=== PATIENT | male | born 1985 | race Caucasian/White ===

== ENCOUNTER 2020-07-09 15:57 | Inpatient (IN) | payer BC, SELFPAY ==
[2020-07-09 16:10] VITALS: BP 123/75; PULSE 120; RESP 18; TEMP 37.1; O2SAT 100
--- NOTE | 2020-07-09 16:18 | ED.GENADULT ---
HPI - General Adult General Chief complaint: Recheck/Abnormal Lab/Rx Stated complaint: dark urine Time Seen by Provider: 07/09/20 16:08 Source: patient Mode of arrival: ambulatory Limitations: no limitations History of Present Illness HPI narrative: Patient is a 34-year-old male was sent here by his primary care physician due to blood in his urine and was told that he could have an infection. Patient states that his urine was a little dark but did not see any blood. Patient denies any chest pain, shortness of breath, abdominal pain, flank pain, nausea, vomiting, diarrhea, fever or chills. Patient denies any GI bleeding. Related Data Home Medications Medication Instructions Recorded Confirmed Eliquis 5 mg BID 07/09/20 07/09/20 Protonix 40 mg DAILY 07/09/20 07/09/20 Vitamin D2 50,000 units WEEKLY 07/09/20 07/09/20 cyclobenzaprine 10 mg 07/09/20 gabapentin 400 mg TID 07/09/20 07/09/20 nortriptyline 25 mg HS 07/09/20 07/09/20 Allergies Allergy/AdvReac Type Severity Reaction Status Date / Time No Known Allergies Allergy Verified 07/09/20 17:20 Review of Systems Review of Systems: All systems reviewed & are unremarkable except as noted in HPI and below Constitutional: Constitutional: Denies body ache(s), Denies chills, Denies excessive sweating, Denies fatigue, Denies fever(s), Denies headache(s), Denies lethargy, Denies malaise, Denies weakness and Denies weight loss Eyes: Eyes: Denies blurry vision, Denies change in vision and Denies loss of vision ENT: Denies dizziness, Denies ear discharge, Denies headache(s), Denies lip swelling, Denies epistaxis, Denies nasal congestion, Denies neck pain, Denies throat swelling and Denies tongue swelling Cardiovascular: Cardiovascular: Denies chest pain, Denies chest pain at rest, Denies chest pain with activity, Denies diaphoresis, Denies rapid heart rate, Denies edema, Denies irregular heart rhythm, Denies lightheadedness, Denies palpitations, Denies dyspnea and Denies dyspnea on exertion Respiratory: Respiratory: Denies chest congestion, Denies cough, Denies hemoptysis, Denies dyspnea and Denies dyspnea on exertion Gastrointestinal: Gastrointestinal: Denies abdominal pain, Denies melena, Denies hematochezia, Denies diarrhea, Denies nausea, Denies vomiting and Denies hematemesis Musculoskeletal: Musculoskeletal: Denies abnormal gait, Denies deformity, Denies joint swelling, Denies limited range of motion, Denies neck pain and Denies numbness Neurologic: Denies Abnormal speech present, Denies abnormal gait, Denies confusion, Denies dizziness, Denies headache(s), Denies focal weakness, Denies loss of vision, Denies numbness, Denies Other visual disturbances, Denies Sensory deficit (Neuro) and Denies weakness Psychiatric: Psychiatric: Denies confusion, Denies depression, Denies auditory hallucinations, Denies homicidal ideation and Denies suicidal ideation Endocrine: Endocrine: Denies cold intolerance, Denies excessive sweating, Denies fatigue, Denies heat intolerance and Denies palpitations Hematologic/Lymphatic: Hematologic/Lymphatic: Denies easy bleeding and Denies easy bruising Allergic/Immunologic: Allergic/Immunologic: Denies lip swelling, Denies throat swelling and Denies tongue swelling PMFSH Comments Past medical history: Paraplegia Social history: Non-smoker no EtOH use no drug use. Family history noncontributory Exam Const: General: cooperative, healthy appearing, comfortable, no acute distress, well developed, alert and awake; No confusion Orientation/consciousness: oriented to person, oriented to place, oriented to time, patient oriented x3 and No confusion Limitations: no limitations HENMT: Head: normal to inspection, normocephalic and atraumatic Ears: hearing grossly normal bilaterally, TM normal on the right and TM normal on the left General nose exam: Normal external nose present, Normal nares present and No nasal discharge present Face and sinus: normal facia
[2020-07-09 16:37] LABS: Basophils Percent Auto 0.3 % (0.2-1.2); Eosinophils Absolute Auto 0.2 K/mm3 (0-0.3); Eosinophils Percent Auto 1.8 % (0-4.4); Immature Granulocyte Absolute 0.03 K/mm3 (0.00-0.031); Immature Granulocyte Percent A 0.3 % (0-0.5); Lymphocytes Absolute Auto 2.61 K/mm3 (0.9-3.2); Lymphocytes Percent Auto 22.4 % (18.3-44.2); Mean Corpuscular HGB Conc 31.7 g/dl (32-36); Mean Corpuscular Volume 91.5 fl (80-100); Monocytes Absolute Auto 1.1 K/mm3 (0.1-0.6); Monocytes Percent Auto 9.4 % (2.6-8.5); Neutrophils Absolute Auto 7.7 K/mm3 (1.3-6.7); Neutrophils Percent Auto 65.8 % (45.5-73.1); Nucleated Red Blood Cells Perc 0.2 % (0.0-0.2); Platelet Count Result 432 k/mm3 (150-375); Red Blood Count 2.24 M/mm3 (4.6-6.20); Red Cell Distribution Width 16.6 % (11.5-14.5); White Blood Count 11.7 K/mm3 (4.5-10.0)
[2020-07-09 16:40] LABS: Hematocrit 20.5 % (42.0-52.0); Hemoglobin 6.5 g/dL (14.0-18.0)
[2020-07-09 16:47] LABS: Add Urine Microscopic? YES; Appearance Urine Cloudy (Clear); Bacteria Urine 4+ /hpf; Bilirubin Urine Negative (Negative); Blood Urine Negative (Negative); Color Urine Yellow (Yellow); Glucose Urine UA Negative (Negative); Ketones Urine Negative (Negative); Leukocyte Esterase Ur 1+ LEU/UL (Negative); Mucus Urine Rare /lpf; Nitrate Urine Positive (Negative); Protein Urine 1+ mg/dL (Negative); Specific Grav Ur 1.018 (1.001-1.035); Urobilinogen Urine Negative mg/dL (<2.0); WBC Urine 21-30 /hpf
[2020-07-09 16:49] LABS: Anion Gap 6 mmol/L (8-16); Blood Urea Nitrogen 12 mg/dL (9-20); Calcium 8.7 mg/dL (8.4-10.2); Carbon Dioxide 33 mmol/L (22-30); Chloride 98 mmol/L (98-107); Estimated CRCL calculation 142 ml/min; Estimated Glomerular Filt Rate > 60; Glucose 122 mg/dL (75-110); Potassium 4.2 mmol/L (3.4-5.0); Sodium 137 mmol/L (137-145)
[2020-07-09 18:32] LABS: Alanine Aminotransferase 17 U/L (4-50); Albumin Level 3.6 g/dL (3.5-5.1); Alkaline Phosphatase 80 U/L (38-126); Aspartate Amino Transferase 29 U/L (17-59); Bilirubin,Total 1.2 mg/dL (0.2-1.3); Lactate Dehydrogenase 416 U/L (313-618)
[2020-07-09 18:35] VITALS: BP 103/71; PULSE 120; RESP 18; O2SAT 100
[2020-07-09] MEDS: ACETAMINOPHEN 325 MG TABLET 650 MG PO (18:35)
[2020-07-09 18:39] LABS: Transferrin 150 mg/dL (206-381)
--- NOTE | 2020-07-09 18:49 | PC.NURSE ---
1847 - Blood consent signed by patient with this RN as witness. Patient reports history of blood transfusion before with no infusion reaction.
--- NOTE | 2020-07-09 18:59 | PC.NURSE ---
1859- Report given to GERMÁN Alegre.
[2020-07-09 19:01] LABS: Immature Reticulocyte Fraction 32.1 % (3.0-15.9); Reticulocyte Hemoglobin Conten 30.7 pg (28.2-35.7); Reticulocyte Percent 3.84 % (0.7-4.3); Reticulocytes Absolute 0.09 B/L (32.2-175.7)
[2020-07-09 19:22] LABS: Iron 45 ug/dL (49-181)
--- NOTE | 2020-07-09 19:30 | ADMGEN ---
This patient, Agusto Akhtar, was admitted to Medical Room 348-01. Patient/family oriented to hospital policies and general routines including ID bracelet, bed and alarms, visiting hours, pain management, procedures, bathroom and other care routines, personal items, smoking policy, room service/diet, and visiting hours. Information on how to activate the Rapid Response Team has been discussed. Patient/Family are encouraged to report perceived risks to care and to ask questions if they do not understand what they are told or what they should do.
[2020-07-09 19:31] LABS: Percent Iron Saturation 22 % (20-50)
[2020-07-09 19:43] VITALS: BP 118/75; PULSE 116; RESP 18; TEMP 37.6; O2SAT 100; BMI 20.2
[2020-07-09 19:54] LABS: Folic Acid > 20.0 ng/mL (2.76->20)
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
[2020-07-09] MEDS: HYDROcodone/acetaminophen (*CRX) 5-325 MG TABLET 1 TAB PO (20:39)
[2020-07-10] VITALS (10 sets, daily range): BP systolic 103–130; BP diastolic 58–80; PULSE 102–118; RESP 14–18; TEMP 36.6–36.9; O2SAT 99–100; BMI 20.2
[2020-07-10] MEDS: MORPHINE SULFATE (*CRX) 2 MG/ML INJ IV PUSH (00:04)
[2020-07-10] MEDS: CYANOCOBALAMIN INJ 1,000 MCG/ML VIAL 1000 MCG IM ×2 (00:04→16:50)
[2020-07-10] MEDS: SODIUM CHLORIDE 0.9% IV 250 ML 30 ML IV CONT (07:48)
[2020-07-10] MEDS: diphenhydrAMINE HCl INJ 50 MG/ML VIAL 25 MG IV PUSH (07:48)
[2020-07-10] MEDS: TUBING, BLOOD PLUM PUMP TUBING XX (07:49)
[2020-07-10] MEDS: CYANOCOBALAMIN 1,000 MCG TABLET 1000 MCG PO (07:54)
[2020-07-10] MEDS: polyethylene glycoL 3350 17 GM POWD.PACK PO ×2 (10:04→10:06)
--- NOTE | 2020-07-10 11:10 | PM.IMPN ---
Progress Note: A&P Assessment and Plan (1) Profound anemia: Code(s): D64.9 - Anemia, unspecified Status: Acute Assessment and Plan: symptomatic anemia with unclear etiology -Folate normal, B12 mildly decreased, ferritin normal, iron and TIBC low. Anemia chronic disease? -Could have underlying hematology pathology? He had a positive direct Fernando test and antibodies. -Will obtain peripheral smear and consult hematology -Obtain stool occult test, although no hx of dark stool -Hold eliquis. He is on this to prevent DVTs, no hx of clotting. -Start B12 since he is mildly low -no family or personal hx of sickle cell disease -Pt has just finished 1 unit of blood so far. recheck H&H 1 hour (2) Bacteriuria: Code(s): R82.71 - Bacteriuria Status: Acute Assessment and Plan: Await urine cx -Continue ceftriaxone -HUS seems less likely due to normal kidney fx and no diarrhea hx -Could be chronic bacteriuria from self catheterization -Await urine cx and adjust treatment accordinly (3) Tachycardia: Code(s): R00.0 - Tachycardia, unspecified Status: Acute Assessment and Plan: Likely secondary to anemia -no CP -sepsis and pulmonary embolism or less likely (pt on eliquis) but if it continues with the improving hgb, more evaluation may be necessary. -TSH WNL (4) Paraplegia: Code(s): G82.20 - Paraplegia, unspecified Status: Inactive Assessment and Plan: -Continue nortriptyline and gabapentin. - Eliquis currently on hold until we can sort out his anemia -baclofen PRN will be added Time Spent With Patient Time with patient: 25 - 35 minutes Subjective Date/time seen: 07/10/20 11:10 Interval history: Pt is a 34 y/o male here for anemia. Patient was seen today and states he is feeling better than yesterday. the last couple days he felt like he would get a little lightheaded and had presyncopal symptoms but never actually passed out. He has not had any additional issues with that and is feeling much better. He is a paraplegic so he does not get up and walk but he does not feel short of breath, has no chest pain, no lightheadedness and no dizziness. He has been having good ostomy output without any dark stool. He has no personal or family history of sickle cell disease. He has been having some muscle spasms in his thighs lately. Review of Systems Review of Systems: All systems reviewed & are unremarkable except as noted in HPI and below Exam Narrative: Exam Narrative: General: Well developed well nourished patient in NAD HEENT: normocephalic Neck: supple Neuro: Alert and oriented x4 CV: Tachycardia that appeared sinus at 110 on exam. No murmurs Resp:CTA Abd: Soft, non distended. No pain to palpation. ostomy bag intact with normal formed stool. Positive bowel sounds Extremities: No swelling, erythema, or pain to palpation. paraplegic. Pulses intact Objective Data Vital Signs Vital Signs: Vital Signs - 24 hr 07/09/20 16:10 07/09/20 18:35 07/09/20 19:43 Temperature 98.7 F 99.6 F Pulse Rate 120 H 120 H 116 H Respiratory Rate 18 18 18 Blood Pressure 123/75 103/71 118/75 Pulse Oximetry 100 100 100 07/10/20 05:48 07/10/20 07:42 07/10/20 07:51 Temperature 98 F 98.0 F Pulse Rate 114 H 102 H 115 H Respiratory Rate 18 16 Blood Pressure 120/58 L 111/58 L Pulse Oximetry 100 99 07/10/20 08:06 07/10/20 09:06 07/10/20 10:06 Temperature 98.3 F 98.1 F 98.2 F Pulse Rate 111 H 111 H 118 H Respiratory Rate 14 16 16 Blood Pressure 124/71 123/64 130/80 Pulse Oximetry 99 100 100 07/10/20 11:06 Temperature 98.1 F Pulse Rate 115 H Respiratory Rate 16 Blood Pressure 130/80 Pulse Oximetry 100 Intake/Output Intake/Output: Intake & Output 07/07/20 07/08/20 07/09/20 07/10/20 23:59 23:59 23:59 23:59 Intake Total 50 250 Output Total 300 300 Balance -250 -50 Meds/Results Medications: Active Medi
--- NOTE | 2020-07-10 11:35 | PCNSR ---
On 07/10/20, the student,Andra Blas, provided care and completed [facility] documentation on this patient. I have reviewed the student's documentation and agree with the findings.
[2020-07-10 12:57] LABS: Hematocrit 23.6 % (42.0-52.0); Hemoglobin 7.7 g/dL (14.0-18.0)
[2020-07-10] MEDS: GABAPENTIN 400 MG CAPSULE BY MOUTH ×2 (13:01→16:50)
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
[2020-07-10 14:57] LABS: IFOB Positive Control Positive; Immunochemical Fecal Occult Bl Negative (N)
[2020-07-10] MEDS: FERROUS SULFATE 324 MG TABLET PO (16:50)
[2020-07-10] MEDS: BACLOFEN 10 MG TABLET PO (21:00)
[2020-07-10] MEDS: NORTRIPTYLINE HCL 25 MG CAPSULE BY MOUTH (21:00)
[2020-07-11 05:25] VITALS: BP 119/72; PULSE 109; RESP 16; TEMP 36.4; O2SAT 100
[2020-07-11 05:58] LABS: Basophils Percent Auto 0.3 % (0.2-1.2); Eosinophils Absolute Auto 0.4 K/mm3 (0-0.3); Hematocrit 24.2 % (42.0-52.0); Hemoglobin 7.8 g/dL (14.0-18.0); Immature Granulocyte Absolute 0.04 K/mm3 (0.00-0.031); Immature Granulocyte Percent A 0.3 % (0-0.5); Lymphocytes Absolute Auto 2.36 K/mm3 (0.9-3.2); Lymphocytes Percent Auto 19.7 % (18.3-44.2); Mean Corpuscular HGB Conc 32.2 g/dl (32-36); Mean Corpuscular Hemoglobin 29.2 pg (26-34); Mean Corpuscular Volume 90.6 fl (80-100); Monocytes Absolute Auto 1.3 K/mm3 (0.1-0.6); Neutrophils Absolute Auto 7.9 K/mm3 (1.3-6.7); Neutrophils Percent Auto 65.7 % (45.5-73.1); Nucleated Red Blood Cells Absolute Auto 0.1 K/mm3 (0.0-0.012); Nucleated Red Blood Cells Perc 0.7 % (0.0-0.2); Platelet Count Result 518 k/mm3 (150-375); Red Blood Count 2.67 M/mm3 (4.6-6.20); Red Cell Distribution Width 17.2 % (11.5-14.5)
[2020-07-11 06:22] LABS: Alanine Aminotransferase 15 U/L (4-50); Albumin Level 3.2 g/dL (3.5-5.1); Alkaline Phosphatase 73 U/L (38-126); Anion Gap 0 mmol/L (8-16); Aspartate Amino Transferase 22 U/L (17-59); Bilirubin,Total 0.8 mg/dL (0.2-1.3); Blood Urea Nitrogen 10 mg/dL (9-20); Calcium 8.7 mg/dL (8.4-10.2); Carbon Dioxide 35 mmol/L (22-30); Chloride 102 mmol/L (98-107); Estimated CRCL calculation 132 ml/min; Estimated Glomerular Filt Rate > 60; Glucose 134 mg/dL (75-110); Potassium 4.1 mmol/L (3.4-5.0); Sodium 137 mmol/L (137-145)
[2020-07-11] MEDS: CYANOCOBALAMIN 1,000 MCG TABLET 1000 MCG PO (08:59)
[2020-07-11] MEDS: GABAPENTIN 400 MG CAPSULE BY MOUTH ×3 (08:59→17:48)
[2020-07-11] MEDS: PANTOPRAZOLE 40 MG TABLET BY MOUTH (08:59)
[2020-07-11] MEDS: polyethylene glycoL 3350 17 GM POWD.PACK PO (08:59)
[2020-07-11] MEDS: FERROUS SULFATE 324 MG TABLET PO ×2 (08:59→17:48)
[2020-07-11 14:00] VITALS: BP 111/68; PULSE 114; RESP 16; TEMP 36.7; O2SAT 99
--- NOTE | 2020-07-11 14:26 | WPDONCPN ---
Progress Note: A/P - Additional Plan Normocytic anemia. Labs showed low vitamin B12 and mild iron deficiency. Kidney function was normal. Hemoccult stools came back negative for bleeding. Fernando test was positive. LDH and bilirubin normal. Hemoglobin electrophoresis pending. Patient is clinically feeling better. If hemoglobin does not improve any further then we will consider giving him a trial of prednisone 60 mg daily for possible hemolytic anemia with positive Fernando test. I will continue vitamin B12 injection for total of 3 days and then will be discharged home on oral vitamin B12 500 micro g daily. He will also take oral ferrous sulfate 325 mg 3 times a day. I will see him back in the office in 2 weeks to repeat labs. Leukocytosis and thrombocytosis. This is likely reactive. - Time Spent With Patient Total time spent is greater than 50% in coordination of care (as documented) at patient's floor/unit and/or counseling patient: 15 - 25 minutes Subjective Interval history: Normocytic anemia Leukocytosis and thrombocytosis Review of Systems - Review of Systems Patient is feeling better and little bit more energetic today. He denies any bleeding and bruising. He started eating better. Denies any abdominal pain and chest pain. No other new complaints. - Neurologic Denies abnormal speech, Denies abnormal gait, Denies confusion, Denies headache(s), Denies focal weakness, Denies loss of vision, Denies numbness, Denies other visual disturbances, Denies sensory deficit, Denies weakness Exam Vital signs: Temp Pulse Resp BP Pulse Ox 36.4 C 109 H 16 119/72 100 07/11/20 05:25 07/11/20 05:25 07/11/20 05:25 07/11/20 05:25 07/11/20 05:25 Narrative: Lungs are clear to auscultation bilaterally Cardiovascular regular rate rhythm no murmurs Abdomen soft nontender nondistended bowel sounds are positive in all 4 quadrant Extremities no edema PN: Objective Data - Labs CBC & Chem 7: 07/11/20 05:20 07/11/20 05:20 Labs: Laboratory Results - last 24 hr 07/09/20 07/10/20 07/11/20 17:34 12:22 05:20 WBC 12.0 H RBC 2.67 L Hgb 7.8 L Hct 24.2 L MCV 90.6 MCH 29.2 MCHC 32.2 RDW 17.2 H Plt Count 518 H MPV 9.0 Immature Gran % (Auto) 0.3 Neut % (Auto) 65.7 Lymph % (Auto) 19.7 [place] % (Auto) 11.0 H Eos % (Auto) 3.0 Baso % (Auto) 0.3 Lymph # (Auto) 2.36 [place] # (Auto) 1.3 H Eos # (Auto) 0.4 H Baso # (Auto) 0.0 Abs Immat Gran (auto) 0.04 H Absolute Neuts (auto) 7.9 H Absolute Nucleated RBC 0.1 H Nucleated RBC % 0.7 H Sodium Potassium Chloride Carbon Dioxide Anion Gap BUN Creatinine Estim Creat Clear Calc Estimated GFR Glucose Calcium Total Bilirubin Direct Bilirubin AST ALT Alkaline Phosphatase Total Protein Albumin Stl Occult Blood (IFOB) Negative Enhanced Crossmatch See Detail 07/11/20 05:20 WBC RBC Hgb Hct MCV MCH MCHC RDW Plt Count MPV Immature Gran % (Auto) Neut % (Auto) Lymph % (Auto) [place] % (Auto) Eos % (Auto) Baso % (Auto) Lymph # (Auto) [place] # (Auto) Eos # (Auto) Baso # (Auto) Abs Immat Gran (auto) Absolute Neuts (auto) Absolute Nucleated RBC Nucleated RBC % Sodium 137 Potassium 4.1 Chloride 102 Carbon Dioxide 35 H Anion Gap 0 L BUN 10 Creatinine 0.60 L Estim Creat Clear Calc 132 Estimated GFR > 60 Glucose 134 H Calcium 8.7 Total Bilirubin 0.8 Direct Bilirubin 0.0 AST 22 ALT 15 Alkaline Phosphatase 73 Total Protein 7.0 Albumin 3.2 L Stl Occult Blood (IFOB) Enhanced Crossmatch
--- NOTE | 2020-07-11 15:17 | PM.IMPN ---
Progress Note: A&P Assessment and Plan (1) Profound anemia: Code(s): D64.9 - Anemia, unspecified Status: Acute Assessment and Plan: Symptomatic anemia with unclear etiology. Underwent transfusion 1 unit pRBC on 07/10/20. Folate normal, B12 mildly decreased, ferritin normal, iron and TIBC low. He had a positive direct Fernando test and antibodies. No family or personal history of sickle cell disease. Peripheral smear shows hypochromic anemia consistent with iron deficiency. IFOB negative. H&H remaining stable. Vital signs remaining stable. No evidence of bleeding. -hematology is following and input is appreciated -Continue PO vitamin b12 1000 mcg qAM. Discussed with Dr. Sandoval and plan to discharge on 500 mcg daily. Hopeful discharge tomorrow if stable H&H and continued improvement. -Continue PO iron supplementation. Discharge on oral iron. -Resume Eliquis. Do not suspect blood loss anemia. -Trend H&H. Transfuse as needed with hgb threshold <7.0 -Plan for CBC 1 week following discharge and outpatient hematology follow up 2 weeks post discharge. (2) Urinary tract infection: Code(s): N39.0 - Urinary tract infection, site not specified Status: Acute Assessment and Plan: Urine culture abnormal upon presentation. He has mild leukocytosis. Urine culture demonstrated >100,000 CFU Klebsiella oxytocin. -continue IV Rocephin (3) Tachycardia: Code(s): R00.0 - Tachycardia, unspecified Status: Acute Assessment and Plan: Likely secondary to anemia or UTI. No chest pain or palpitations. HR has ranged from 100-120. PE less likely as pt is on Eliquis with no missed doses (however eliquis initially held in setting of anemia). TSH wnl. -Check orthostatics, lying down and sitting up only -check EKG -Monitor HR and hemodynamic trends -Consider IV fluid bolus. At this time, patient appears euvolemic and is eating and drinking. (4) Paraplegia: Code(s): G82.20 - Paraplegia, unspecified Status: Inactive Assessment and Plan: Secondary to thoracic spinal cord injury in January 2020. -Continue nortriptyline and gabapentin. -baclofen PRN (5) Thrombocytosis: Code(s): D47.3 - Essential (hemorrhagic) thrombocythemia Status: Acute Assessment and Plan: Platelets 518 today. Thrombocytosis noted on peripheral smear. This is likely reactive secondary to infectious etiology vs anemia. -monitor platelets Subjective Date/time seen: 07/11/20 15:17 Interval history: Date of service: 07/11/2020 Agusto Akhtar is a 34-year-old male with history of paraplegia secondary to thoracic spinal cord injury and chronic anemia who is seen in follow-up for anemia. He is feeling better today and reports his appetite is significantly improved. He no longer is having dizziness or lightheadedness. He denies shortness of breath. No nausea, vomiting, fever, chills. Denies weakness. No additional concerns at this time. Review of Systems Review of Systems: Narrative: 12 systems reviewed with pertinent positives and negatives as per HPI. All systems reviewed & are unremarkable except as noted in HPI and below Exam Narrative: Exam Narrative: Mr. Akhtar is a well-nourished, well-appearing paraplegic 34-year-old male who is lying semi recumbent in bed. He appears comfortable and is in NARD. Neuro: awake, alert and oriented x4, speech clear, no focal neuro deficits noted HEENMT: normocephalic, atraumatic, EOMI, sclerae anicteric, moist oral mucosa, tongue midline, nares patent Neck: supple, no lymphadenopathy Respiratory: clear to auscultation bilaterally, nonlabored breathing Cardio: regular rate, regular rhythm with S1-S2 Abdomen: nondistended, normoactive bowel sounds, soft, nontender to palpation, no rigidity or guarding. Colostomy bag in right lower quadrant Extremities: no edema, erythema, cyanosis, clubbing. DP pulses 2+ bilaterally Skin: no
--- NOTE | 2020-07-11 15:43 | ECG_ITS ---
Measurements Intervals [place] Rate: 114 P: 50 OK: 121 QRS: 32 QRSD: 88 T: 43 QT: 304 QTc: 420 Interpretive Statements SINUS TACHYCARDIA INCOMPLETE RIGHT BUNDLE BRANCH BLOCK ST ELEVATION IN ANTEROLATERAL LEADS- PROBABLY EARLY REPOLARIZATION NONSPECIFIC T-WAVE ABNORMALITY- INF/HIGH LAT LEADS BASELINE WANDER- II, III, AVF, V5-V6 ABNORMAL ECG Electronically Signed On 07-11-2020 16:35:03 [facility] by Jose Jean D.O.
[2020-07-11] MEDS: APIXABAN 5 MG TABLET BY MOUTH (17:48)
[2020-07-11 20:09] VITALS: BP 117/70; PULSE 110; RESP 14; TEMP 37.2; O2SAT 100
[2020-07-11] MEDS: NORTRIPTYLINE HCL 25 MG CAPSULE BY MOUTH (20:42)
[2020-07-12 06:00] VITALS: BP 120/65; PULSE 105; RESP 14; TEMP 36.6; O2SAT 100
[2020-07-12 06:06] LABS: Basophils Absolute Auto 0.1 K/mm3 (0.0-0.1); Basophils Percent Auto 0.5 % (0.2-1.2); Eosinophils Absolute Auto 0.3 K/mm3 (0-0.3); Eosinophils Percent Auto 2.9 % (0-4.4); Hemoglobin 8.1 g/dL (14.0-18.0); Immature Granulocyte Absolute 0.03 K/mm3 (0.00-0.031); Immature Granulocyte Percent A 0.3 % (0-0.5); Lymphocytes Absolute Auto 2.15 K/mm3 (0.9-3.2); Lymphocytes Percent Auto 19.5 % (18.3-44.2); Mean Corpuscular HGB Conc 32.4 g/dl (32-36); Mean Corpuscular Hemoglobin 29.3 pg (26-34); Mean Corpuscular Volume 90.6 fl (80-100); Mean Platelet Volume 8.4 fl (7.4-10.4); Monocytes Absolute Auto 1.1 K/mm3 (0.1-0.6); Monocytes Percent Auto 10.2 % (2.6-8.5); Neutrophils Absolute Auto 7.4 K/mm3 (1.3-6.7); Neutrophils Percent Auto 66.6 % (45.5-73.1); Nucleated Red Blood Cells Absolute Auto 0.1 K/mm3 (0.0-0.012); Nucleated Red Blood Cells Perc 0.7 % (0.0-0.2); Platelet Count Result 629 k/mm3 (150-375); Red Blood Count 2.76 M/mm3 (4.6-6.20); Red Cell Distribution Width 17.1 % (11.5-14.5)
[2020-07-12 06:21] LABS: Anion Gap 3 mmol/L (8-16); Blood Urea Nitrogen 13 mg/dL (9-20); Calcium 9.3 mg/dL (8.4-10.2); Carbon Dioxide 34 mmol/L (22-30); Chloride 100 mmol/L (98-107); Estimated CRCL calculation 132 ml/min; Estimated Glomerular Filt Rate > 60; Glucose 110 mg/dL (75-110); Potassium 4.3 mmol/L (3.4-5.0); Sodium 137 mmol/L (137-145)
[2020-07-12 08:00] VITALS: PULSE 105; RESP 14; O2SAT 99
[2020-07-12 08:14] VITALS: O2SAT 99
[2020-07-12] MEDS: polyethylene glycoL 3350 17 GM POWD.PACK PO (08:31)
[2020-07-12] MEDS: FERROUS SULFATE 324 MG TABLET PO (08:31)
[2020-07-12] MEDS: APIXABAN 5 MG TABLET BY MOUTH (08:31)
[2020-07-12] MEDS: CYANOCOBALAMIN 1,000 MCG TABLET 1000 MCG PO (08:31)
[2020-07-12] MEDS: GABAPENTIN 400 MG CAPSULE BY MOUTH ×2 (08:32→12:03)
[2020-07-12] MEDS: PANTOPRAZOLE 40 MG TABLET BY MOUTH (08:32)
[2020-07-12] MEDS: CIPROFLOXACIN 500 MG TAB PO (08:47)
--- NOTE | 2020-07-12 11:48 | PM.DS ---
DS: Admitting Diagnosis Admitting Diagnosis Admitting Diagnosis: Profound Anemia, bacteriuria, tachycardia DS: Discharge Diagnosis Discharge Diagnosis (1) Profound anemia: Code(s): D64.9 - Anemia, unspecified Status: Acute Assessment and Plan: Symptomatic anemia with unclear etiology. Underwent transfusion 1 unit pRBC on 07/10/20. Folate normal, B12 mildly decreased, ferritin normal, iron and TIBC low. He had a positive direct Fernando test and antibodies. No family or personal history of sickle cell disease. Peripheral smear shows hypochromic anemia consistent with iron deficiency. IFOB negative. H&H remaining stable. Vital signs remaining stable. No evidence of bleeding. -hematology is following and input is appreciated -Per Dr. Sandoval, plan to discharge on 500 mcg daily -Continue PO iron supplementation. Discharge on oral iron. -Continue Eliquis. Do not suspect blood loss anemia. -Plan for CBC 1 week following discharge and outpatient hematology follow up 2 weeks post discharge. (2) Urinary tract infection: Code(s): N39.0 - Urinary tract infection, site not specified Status: Acute Assessment and Plan: Urine culture abnormal upon presentation. He has mild leukocytosis. Urine culture demonstrated >100,000 CFU Klebsiella oxytocin, sensitive to Rocephin and Cipro. -D/c Rocephin (3 days) -Start Cipro 500 mg Q12hr today and continue through 07/16 to complete 5 days of this (8 days total of antibiotics) (3) Tachycardia: Code(s): R00.0 - Tachycardia, unspecified Status: Acute Assessment and Plan: Likely secondary to anemia or UTI. No chest pain or palpitations. HR has ranged from 100-120. PE less likely as pt is on Eliquis with no missed doses (however eliquis initially held in setting of anemia). TSH wnl. EKG grossly unremarkable for patient's symptoms. Overall, patient feels much better today -Unremarkable work up, thus will have patient f/u with PCP (4) Paraplegia: Code(s): G82.20 - Paraplegia, unspecified Status: Inactive Assessment and Plan: Secondary to thoracic spinal cord injury in January 2020. -Continue nortriptyline and gabapentin. -baclofen PRN (5) Thrombocytosis: Code(s): D47.3 - Essential (hemorrhagic) thrombocythemia Status: Acute Assessment and Plan: Platelets 629 today. Thrombocytosis noted on peripheral smear. This is likely reactive secondary to infectious etiology vs anemia. -monitor platelets with CBC 1 week DS: Summary Hospital Course Reason for hospitalization: Profound anemia, UTI Hospital Course: Date of arrival: 07/09/20 Date of discharge: 07/12/20 Patient is a 34-year-old male with paraplegia on Eliquis for DVT prophylaxis and history of anemia who presented to the emergency department on 07/09 at the direction of his primary care provider for further evaluation of anemia. While in the ED, patient was found to have hgb of 6.5 thus was transfused 1 u pRBC. He was also found to have UA suspicious for UTI and was started on IV Rocephin. Patient admitted under this setting of anemia and bacteruria. Please see H&P for further details. Patient was admitted to the hospitalist service for further management/treatment. Patient's hemoglobin was trended with improvement of hemoglobin to 7.7-8.[address] Sandoval (hematology) was consulted for further input. He was found to have low normal vitamin B12 and iron panel suggestive of ACD with low iron and TIBC and normal ferritin; normal saturations. It was recommended patient have vitamin B12 replaced during stay and PO iron supplementation. Dr. Sandoval recommended cyanocobalamin 500 mcg daily and ferrous sulfate 325 mg TIDWM. He was to follow up with Dr. Sandoval in 2 week
[2020-07-12 13:55] VITALS: BP 116/60; PULSE 105; RESP 18; TEMP 36.7; O2SAT 100
--- NOTE | 2020-07-12 14:53 | PC.NURSE ---
Patient voiced that he has had the flu vaccine this season.
[2020-07-16 20:59] LABS: Haptoglobin 227 mg/dL (43-212)
[2020-07-18 00:07] LABS: Hematocrit 20.3 % (38.5-50.0); Hemoglobin 6.6 g/dL (13.2-17.1); MCH 30.1 pg (27.0-33.0); MCV 92.7 FL (80.0-100.0); RDW 16.2 % (11.0-15.0); Red Blood Cell Count 2.19 Mill/uL (4.20-5.80)
== END 2020-07-12 15:25 | disposition home or self-care (01) | DRG 663 ==
LOC: ANHED 18:34 → ANH3MED 18:40
PROVIDERS: Physician Assistant; Admitting Provider Family Medicine; Emergency Provider Emergency Medicine; PCP Family Medicine; Visit Provider Physician Assistant
DX: D50.9 Iron deficiency anemia, unspecified (principal); N39.0 Urinary tract infection, site not specified; B96.1 Klebsiella pneumoniae [K. pneumoniae] as the cause of diseases classified elsewhere; R00.0 Tachycardia, unspecified; E55.9 Vitamin D deficiency, unspecified; D72.828 Other elevated white blood cell count; D47.3 Essential (hemorrhagic) thrombocythemia; G82.20 Paraplegia, unspecified; W34.00XS Accidental discharge from unspecified firearms or gun, sequela
CPT/HCPCS: 36415; 36430; 80048; 80076; 81001; 81479; 82607; 82728; 82746; 83010; 83021; 83540; 83550; 83615; 84443; 84466; 85014; 85018; 85025; 85046; 86850; 86860; 86870; 86880; 86900; 86901; 86902; 86922; 86970; 86971; 86978; 87077; 87086; 87088; 87186; 93005; 96365; 96372; 96375; 99285; A9270; G0378; G0379; J0696; J1200; J2270; J3420; J7050; P9016

== ENCOUNTER 2023-04-29 16:02 | Emergency (ER) | payer MEDICARE, MEDICAID, SELFPAY ==
[2023-04-29 16:21] VITALS: BP 149/88; PULSE 108; RESP 18; TEMP 36.5; O2SAT 97
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
[2023-04-29 23:02] LABS: Basophils Absolute Auto 0.1 K/mm3 (0.0-0.1); Basophils Percent Auto 0.7 % (0.2-1.2); Eosinophils Absolute Auto 0.4 K/mm3 (0-0.3); Eosinophils Percent Auto 3.6 % (0-4.4); Hematocrit 40.9 % (42.0-52.0); Hemoglobin 12.6 g/dL (14.0-18.0); Immature Granulocyte Absolute 0.02 K/mm3 (0.00-0.031); Immature Granulocyte Percent A 0.2 % (0-0.5); Lymphocytes Absolute Auto 2.91 K/mm3 (0.9-3.2); Lymphocytes Percent Auto 27.9 % (18.3-44.2); Mean Corpuscular HGB Conc 30.8 g/dl (32-36); Mean Corpuscular Hemoglobin 29.4 pg (26-34); Mean Corpuscular Volume 95.6 fl (80-100); Mean Platelet Volume 8.5 fl (7.4-10.4); Monocytes Absolute Auto 1.5 K/mm3 (0.1-0.6); Monocytes Percent Auto 14.4 % (2.6-8.5); Neutrophils Absolute Auto 5.6 K/mm3 (1.3-6.7); Neutrophils Percent Auto 53.2 % (45.5-73.1); Platelet Count Result 549 k/mm3 (150-375); Red Blood Count 4.28 M/mm3 (4.6-6.20); Red Cell Distribution Width 15.1 % (11.5-14.5); White Blood Count 10.4 K/mm3 (4.5-10.0)
[2023-04-29 23:13] LABS: Alanine Aminotransferase 16 U/L (6-50); Albumin Level 4.1 g/dL (3.5-5.1); Alkaline Phosphatase 129 U/L (38-126); Anion Gap 5 mmol/L (8-16); Aspartate Amino Transferase 24 U/L (17-59); Bilirubin,Total 0.4 mg/dL (0.2-1.3); Blood Urea Nitrogen 8 mg/dL (9-20); Calcium 9.3 mg/dL (8.4-10.2); Carbon Dioxide 28 mmol/L (22-30); Chloride 106 mmol/L (98-107); Estimated CRCL calculation 127 ml/min; Estimated Glomerular Filt Rate > 60; Glucose 93 mg/dL (65-110); Potassium 4.1 mmol/L (3.4-5.0); Sodium 139 mmol/L (137-145)
[2023-04-30 00:08] LABS: Toxigenic C. Diff NEGATIVE (NEGATIVE)
[2023-04-30 00:33] VITALS: BP 140/84; PULSE 92; RESP 15; O2SAT 100
== END 2023-04-30 00:34 | disposition home or self-care (01) ==
PROVIDERS: Emergency Provider Physician Assistant
DX: K52.1 Toxic gastroenteritis and colitis (principal); T36.95XA Adverse effect of unspecified systemic antibiotic, initial encounter; N39.0 Urinary tract infection, site not specified; G82.20 Paraplegia, unspecified; S24.109S Unspecified injury at unspecified level of thoracic spinal cord, sequela; D64.9 Anemia, unspecified; E55.9 Vitamin D deficiency, unspecified; Z79.01 Long term (current) use of anticoagulants; W34.00XS Accidental discharge from unspecified firearms or gun, sequela
CPT/HCPCS: 36415; 80053; 85025; 87493; 99283

== ENCOUNTER 2023-10-07 13:30 | Outpatient (RCR) | payer MEDICARE, SELFPAY ==
--- NOTE | 2023-07-29 14:15 | OTOPEVAL1 ---
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 He reports he has been feeling more sensation and pain in his lower body. He comes today with only OT orders. Requesting PT orders. He reports he would like to build his UB strength and work on standing. Agusto Ortiz lives at home with his mom, Karen. They live in a town home with only a 1/2 bath on the 1st floor, so he sponge bathes. His mom assists him with bathing and dressing. He uses a slide board for transfers at home. Independently propels himself in a manual w/c. Reported Pain Level Pain Score 6: Self Report Assessment OT Clinical Summary Patient referred to OT with dx of SCI. He presents with intact functional strength of the UEs. Issued UE strengthening HEP today and he completes with some difficulty with 5 lb. weights. Continued skilled OT indicated to continue to progress UE HEP and progress functional upper body strengthening to facilitate optimal strength to assist with functional transfers and ADLs. Plan of Care Interventions Therapeutic Exercise OT Services Indicated Yes Treatment Frequency and 2x/week for 8 visits Duration These treatments will address the objective and functional deficits as defined above. The patient will be advanced safely and appropriately in order for the patient to progress towards his/her prior level of function. Additional exercises will be introduced and as well as a comprehensive home exercise program upon discharge, if needed, ?to ensure carryover of functional gains achieved in the clinic. This treatment plan has been reviewed and agreement upon by the patient.
--- NOTE | 2023-07-29 14:15 | OPREHPOC ---
Outpatient Therapy Plan of Care This is a Multidisciplinary Plan of Care that may contain components documented by all disciplines (PT, OT, and ST.) OT Problem 1 OT Problem #1 Knowledge Deficit OT Goal 1 Goal 1. Patient to be independent with instructed materials. Target Visit 8 OT Problem 2 OT Problem #2 Impaired Strength OT Goal 1 Goal 1. Patient to be able to complete UE strengthening HEP with 5 lb. free weights x20 reps while seated edge of mat. Target Visit 8
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
--- NOTE | 2023-09-01 11:34 | OPREHPOC ---
Outpatient Therapy Plan of Care This is a Multidisciplinary Plan of Care that may contain components documented by all disciplines (PT, OT, and ST.) PT Problem 1 PT Problem #1 Knowledge Deficit PT Goal 1 Goal Independent HEP addressing l.e. strength Target Visit 2 PT Problem 2 PT Problem #2 Impaired Functional Mobil PT Goal 1 Goal -Pt. will be able to maintain balance in standing position in the Easy stand for duration of 20 minutes -Pt. will be able to complete reaching activities without assist while in the Easy Stand. -Pt. will be able to stand with u.e. support from the walker for duration of 2-3 minutes. OT Problem 1 OT Problem #1 Knowledge Deficit OT Goal 1 Goal 1. Patient to be independent with instructed materials. Target Visit 8 OT Problem 2 OT Problem #2 Impaired Strength OT Goal 1 Goal 1. Patient to be able to complete UE strengthening HEP with 5 lb. free weights x20 reps while seated edge of mat. Target Visit 8
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
--- NOTE | 2023-09-14 09:01 | PCOTNOTE ---
Patient called & cancelled scheduled appointment this date due to transportation issue.
--- NOTE | 2023-09-14 09:57 | PCPTNOTE ---
Pt cancelled due to transportation issues
--- NOTE | 2023-09-21 11:59 | PCPTNOTE ---
Pt canceled due to illness.
--- NOTE | 2023-09-23 14:22 | PCPTNOTE ---
Called and cancelled today,reason unknown. AKS
--- NOTE | 2023-09-23 16:02 | PCOTNOTE ---
Patient called & cancelled scheduled appointment this date due to transportation issues.
--- NOTE | 2023-10-12 13:54 | PCPTNOTE ---
Pt did not show today but stated all of his appts. were supposed to be canceled until October due to transportation.
--- NOTE | 2023-10-14 14:07 | PCPTNOTE ---
This treatment is being continued on visit number [id number]. Please see documentation on both accounts to view progress. Completed interventions, outcomes, and problems have been marked as Inactive to facilitate the copying of the Care plan routine for recurring accounts.
== END 2023-10-14 10:15 | disposition home or self-care (01) ==
LOC: ANHPT 13:30
PROVIDERS: PCP Physician Assistant; Visit Provider Physician Assistant
DX: S34.129 Incomplete lesion of unspecified level of lumbar spinal cord (principal)
CPT/HCPCS: 97110; 97112; 97140; 97162; 97165; 97530

== ENCOUNTER 2023-11-21 12:30 | Outpatient (RCR) | payer MEDICARE, SELFPAY ==
--- NOTE | 2023-10-14 13:38 | PCPTNOTE ---
No call No show, reason unknown. AKJosephine
--- NOTE | 2023-10-14 14:06 | PCPTNOTE ---
This treatment is being continued from visit number [id number] Please see documentation on both accounts to view progress. Completed interventions, outcomes, and problems have been marked as Inactive to facilitate the copying of the Care plan routine for recurring accounts.
--- NOTE | 2023-10-31 14:23 | OTOPDC ---
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 He states he is doing his exercises with heavier weights. Functionally he reports no changes in his ability to complete ADLs. He states the sensations in his legs are getting worse, feeling like his legs are on fire. States this keeps him up at night and he ends up sleeping all day. Assessment OT Clinical Summary Patient referred to OT with dx of SCI. OT has been focusing on UB strengthening, especially in unsupported sitting to challenge his trunk control and balance. Reviewed HEP today and he completes with excellent understanding. He has been completing HEP with 5 lb. free weights and has been able to slowly increase amount of reps per set. Added theraband exercises to HEP today and he completes with excellent understanding. Compliance with HEP at home is challenging as he reports leg pain keeps him in bed a lot and he has a hard time getting sleep. At this time patient is independent with HEP. He has 1 OT treatment scheduled this week. Plan for that treatment to be his final visit and we will be discharging OT.
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
--- NOTE | 2023-11-21 14:29 | PTOPDC ---
Assessment and note entered by Ludwin Hammond, PT Evaluation Information Assessment Status Discharge Diagnosis SCI Onset 02/29/20 Subjective Information Reports that as of about a year ago he could not control his core to stay sitting position without back support. He has noted some increased pain that is on his left side and tends to wrap around his left side to the buttock and occasionally into toe. He is getting an achy tingling sensation in legs but still no external sensation. Feels comfortable with HEP and would like to discharge at this time. Reported Pain Level Pain Score 5: Self Report Assessment PT Clinical Summary Patient met all of his current goals for therapy at this time. He has shown greatly improved core stabilization and reaching ability outside of base of support. Continues to have neurological deficits in richard LE but we did see some minor improvement in R hip flexion. Patient is compliant and independent with HEP. Plan of Care PT Services Indicated D/C to HEP
== END 2023-11-21 15:03 | disposition home or self-care (01) ==
LOC: ANHPT 12:30
PROVIDERS: PCP Physician Assistant; Visit Provider Physician Assistant
DX: S34.129 Incomplete lesion of unspecified level of lumbar spinal cord (principal)
CPT/HCPCS: 97110; 97530

== ENCOUNTER 2025-04-07 12:59 | Outpatient (CLI) | payer MEDICARE, MEDICAID, SELFPAY ==
--- NOTE | ~2025-04-07 | CT_ITS ---
EXAM/PROCEDURE: CT abdomen pelvis wo con HISTORY: Incontinence of feces, Unspecified fecal incontinece type COMPARISON: None available. TECHNIQUE: Noncontrast CT of abdomen and pelvis. FINDINGS: A moderate-sized right paracentral ventral hernia present extends through the medial aspect of the rectus abdominis muscle with a peritoneal defect measures approximate 4.1 x 4.0 cm in the transverse biceps coronal dimension. There herniated loops of small bowel as well as a portion of the tr ansverse colon. Moderate amount of stool is present in the right hemicolon with the left hemicolon nondistended with minimal to no stool present. The bowel gas pattern is nonobstructive with no free air free fluid or pneumatosis. No grossly inflamed appearing changes in the herniated bowel identified. No hydroureteronephrosis. Gallbladder spleen pancreas stomach and liver appear within normal limits for technique. No grossly inflamed appendix. Urinary bladder unremarkable. Small to moderate left fat-containing inguinal hernia. Tiny right-sided inguinal hernia with only fat. Reactive appearing lymphadenopathy in both inguinal regions. No bulky mesenteric or retroperitoneal lymphadenopathy or masses. Lung bases clear. Fusion hardware seen in the thoracolumbar junction from T12 to L2. Visualized heart appears normal in size. IMPRESSION: Directed noncontrast exam demonstrating moderate-sized right para midline ventral hernia through the right rectus abdominis muscle; both small and large bowel are herniated with no evidence of obstruction or definite incarceration. Reviewed, dictated and finalized at location A. INE PAN GREASER IMPRESSION: Directed noncontrast exam demonstrating moderate-sized right para midline ventr al hernia through the right rectus abdominis muscle; both small and large bowel are herniated with no evidence of obstruction or definite incarceration.
--- OUTSIDE RECORDS SUMMARY | 2025-04-07 13:05 | XMS_ITS | Clinical Summary ---
Author Organization [facility] Address [address] [place] [address] Phone Care Team Providers Care Director Of Construction Name Role Phone AngeliMari caban Fredrick CARMONA Primary Care Provider [phone] Leigha Mauricio MD Unavailable Allergies Active Allergy Reactions Criticality Noted Date Comments Shellfish Allergy Unknown 02/29/2020 Medications Eliquis 5 MG Tablet Take 5 mg by mouth 2 times daily. Active famotidine (PEPCID) 20 MG Tablet TAKE 1 TABLET BY MOUTH TWICE DAILY DIRECTED Active cyclobenzaprine (FLEXERIL) 10 MG Tablet TAKE 1 TABLET BY MOUTH THREE TIMES DAILY NEEDED Active Cholecalciferol (Vitamin D3) 2000 UNIT Capsule Take 2,000 Units by mouth. 07/19/2022 Active vitamin b-12 (CYANOCOBALAMIN ) 500 MCG Tablet Take 500 mcg by mouth daily. Active Cinnamon 500 MG Tablet Take 1,000 mg by mouth. Active Multiple Vitamin (MULTIVITAMIN PO) Take by mouth. Active Patterson 3 1000 MG Capsule Take by mouth. Active Iron-Vitamin C 65-125 MG Tablet Take by mouth. Active gabapentin (NEURONTIN) 600 MG Tablet Take 600 mg by mouth. 09/02/2024 Active nortriptyline hcl (PAMELOR) 75 MG Capsule Take 75 mg by mouth nightly. Active MAGNESIUM GLYCINATE PO Take 200 mg by mouth. Active Active Problems Problem Noted Date Diagnosed Date Elevated blood pressure reading 02/22/2024 Immunizations Immunization Administration Dates Next Due Covid-19, Mrna, Lnp-s, Pf, 1 00 Mcg Or 50 Mcg Dose (MODERNA) 05/22/2021,04/24/2021 Covid-19, Mrna, Lnp-s, Pf, 3 0 Mcg/0.3 Ml Dose, Akil-sucrose (Pfizer kaur top) 11/07/2021 HIB Vaccine (PRP-T) 03/25/2020 Influenza Vaccine, Quadrivalent, PF 03/06/2020 Meningococcal Group B OMV 03/25/2020 Meningococcal MCV4O 03/25/2020 Pneumococcal Vaccine - 13 Valent 03/25/2020 Social History Tobacco Use Types Packs/Day Years Used Date Smoking Tobacco: Never Smokeless Tobacco: Never Tobacco Cessation:Counseling Given: Not Answered Alcohol Use Standard Drinks/Week Comments Not Currently 0 (1 standard drink = 0.6 oz pur e alcohol) Sex and Gender Information Value Date Recorded Sex Assigned at Not on file Legal Sex Male 9:56 AM CDT Gender Identity Not on file Sexual Orientation Not on file Last Filed Vital Signs Vital Sign Reading Time Taken Comments Blood Pressure 104/82 01/01/2025 1:51 PM CDT Pulse 96 01/01/2025 1:51 PM CDT Temperature 36.8 C (98.2 F) 01/01/2025 1:51 PM CDT Respiratory Rate 18 01/01/2025 1:51 PM CDT Oxygen Saturation 97% 01/01/2025 1:51 PM CDT Inhaled Oxygen Concentration - - Weight 84.2 kg (185 lb 9.6 oz) 01/01/2025 1:51 P M CDT Height 180.3 cm (5' 11) 01/01/2025 1:51 PM CDT Body Mass Index 25.89 01/01/2025 1:51 PM CDT Plan of Treatment Upcoming Encounters Date Type Department Care Team (Late st Contact Info) Description 04/11/2025 1:00 PM CYBER SYSTEMS ENGINEER Lab [facility] [address] [phone] Lab, [facility] 04/11/2025 1:15 PM CYBER SYSTEMS ENGINEER Office Visit [facility] [address] [phone] Leigha Mauricio MD [address] [place] [id number] Health Maintenance Due Date Last Done Comments Hepatitis C Virus (HCV) Screening 1984 TdaP Immunization 1984 Varicella Immunization (1 of 2 - 13+ 2-dose series) 1997 Hepatitis B Immunization (1 of 3 - 19+ 3-dose series) 08/21/2003 Human Papillomavirus (HPV) Immunization (1 - 3-dose SCDM series) 08/21/2011 Medicare Initial AWV [id number] 05/02/2024 Influenza Immunization (#1) 2024 11/0 08/2019, 03/02/2020 SARS-COV-2 Immunization (2024- season) 2024 11/07/2021, 05/22/2021, 04/24/2021 Respiratory Syncytial Virus (RSV) Immunization (Adult) (1 - 1-dose 75+ series) 08/21/2059 Meningococcal Immunization (ACWY) Aged Out 03/25/2020 No longer eligible b ased on patient's age to complete this topic Pneumococcal Immunization Combined Aged Out 03/25/2020 No longer eligible b ased on patient's age to complete this topic Rotavirus Immunization Aged Out No lo nger eligible based on patient's age to complete this topic Insurance MEDICARE [facility] Care Teams Director Of Construction Relationship Specialty Start Date End Date Mari Suh PAC [facility] [place], [place] [phone] PCP - General Physician Soft Top Installer 09/20/23 Leigha Mauricio MD [address] [place] [id number] Consulting Physician Oncology 09/20/23
--- OUTSIDE RECORDS SUMMARY | 2025-04-07 13:05 | XMS_ITS | Continuity of Care Document ---
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 needs due to his spinal cord injury. The specific features of the power recliner (e.g., tilt and recline functions) will mitigate the effects of the SCI. This could include: Pressure relief: Redistribu ting pressure to prevent skin breakdown and pressure ulcers, a major risk for SCI patients.P ostural support: Improving stability, balance, and overall positionin g.Reduced caregiver injury: Easing the physical strain on caregivers during transfers. He is limited in performing mobility-r elated activities of daily living (MRADLs), such as dressing, toileting, and bathing. He is unable to rise independen tly from a standing chair due to his spinal cord injury 5 years ago and is wheelchair confined. His mother lives with him and is his primary caregiver. We need to mitigate risk to her as well with lifting, transferri ng, etc to avoid injury since he relies on her for care. He will reach out to his PT team and they have been asked to send notes so we can order recliner for him to assist with day to day needs and quality of life. Will continue Eliquis to decrease risk of PE Health Concerns Section Related Observation LastModified by Organization Detai ls LastModified Time None Recorded Concern Status LastModified by Organization Details LastModified Time None Recorded Payers Encounter Date Sequence Insurance Name Policy Number Policy Figueroa Covered Member ID Figueroa Member ID Guarantor Name 02/25/2025 1 [facility] (MEDICARE REPLACEMENT/A DVANTAGE - HMO) [id number] Rena Akhtar [id number] Agusto Akhtar Notes Date Note Type Note Provider Name and Address Organization Details Recorded Time 02/25/2025 text/html ROS as noted in the HPI Agusto is a 39 y/o extremely pleasant male who presents to clinic via with his mother. He is here to establish care and for f/u. He is a paraplegic due to spinal cord injury. He has hx of prediabetes, anemia, colostomy, hammertoe and elevated blood pressures. He follows Hematology for monitoring of his anemia. He denies shortness of breath, chest pain, palpitations at today's visit and is doing well overall. He is currently participating in PT/OT. He recently obtained a new wheelchair that he uses with PT/OT and is very happy with it. He expresses he would like recliner to sit in at home to assist him with comfort/mobility needs due to his spinal cord injury. The specific features of the power recliner (e.g., tilt and recline functions) will mitigate the effects of the SCI. This could include: Pressure relief: Redistributing pressure to prevent skin breakdown and pressure ulcers, a major risk for SCI patients.Postural support: Improving stability, balance, and overall positioning.Reduced caregiver injury: Easing the physical strain on caregivers during transfers. He is limited in performing mobility-related activities of daily living (MRADLs), such as dressing, toileting, and bathing. He is unable to rise independently from a standing chair due to his spinal cord injury 5 years ago and is wheelchair confined. His mother lives with him and is his primary caregiver. We need to mitigate risk to her as well with lifting, transferring, etc to avoid injury since he relies on her for care. He will reach out to his PT team and they have been asked to send notes so we can order recliner for him to assist with day to day needs and quality of life. Established with Hematology. Manages anemia. He sees them every 3 months.Established with Urology. Seeks advice occasionally on intermittent self cath. He denies UTI sx at this time. Education given on hand hygiene when self-cath, avoid going to deep to avoid bleeding, irritation, etc. Hypertension:encoura ge to Monitor at homeGoal 130/70 -Tobacco/Drug/Alcoho l Use: No Other habits:Exercise- PT/OT - [place]- fruits/vegetables - limited fruits/vegetables/dr inks water Allergies: On file Health Maintenance:- CRC screening (45-75):Due at 45 years.- Osteoporosis screening: Due at 65.- Lipid screening (>45 unless additional risk factors):- HIV : Completed- HepC: completed -Eye exam: Annually-Dental Exam: Annually - Immunizations:- Influenza: Due. Will order today.- Prevnar 20: Due at 65.- Tdap/Td ([id number]):- Zoster (>60):Due at 60.- COVID-19: Marilia Serrano-Ghulam guillaume NP Attn: Accounting[address] [place], [address], [place] [facility] 02/25/2025 17:17:56
--- OUTSIDE RECORDS SUMMARY | 2025-04-07 13:05 | XMS_ITS | Data Portability ---
Author Organization [facility] Address [address] [place] [address] Care Team Providers Care Stereotyper Helper Name Role Phone TORI VALLADARES Primary Care Provider GWYN GALVAN Primary Care Provider [phone] Assessment Encounter Date Assessment Date Assessment LastModified by Organization Details LastModified Time 10/10/2023 10/10/2023 aaron marks [email or web address] Not available 10/24/2023 12:13:36 09/19/2024 09/19/2024 New pt exam performed RTC 1 y [email or web address] Not available 09/19/2024 14:30:39 Plan of Treatment Reminders Order Date Submit Date Provider Last Modified By Organization Details Last Modified Time Details Appointments ANY 15 2025 01:15P M Brian Heath DPM Not available Not available Not available Lab HbA1c (hemoglob in A1c), blood 2024 025 WINNIE In-Office Order, Internal Use Only DO Not Attach Compendium DO Not Attach Compendium, Do Not Delete/merge, [id number] 02/25/2025 16:05:50 CBC w/ auto diff 2024 025 WINNIE [facility], [address], [place], [address], 02/26/2025 08:34:40 lipid panel, serum 2024 025 WINNIE [facility], [address], [place], [address], 02/26/2025 08:34:38 TSH, ultra-sen sitive, serum 2024 025 LEMOYNE [facility], [address], [place], [address], 02/26/2025 08:34:39 CMP, serum or plasma 2024 025 LEMOYNE [facility], [address], [place], [address], 02/26/2025 08:34:38 HbA1c (hemoglob in A1c), blood 2024 [facility] [address], [place], [address], 02/26/2025 08:34:39 vitamin D, 25-hydrox y, total, serum 2024 025 [facility], [address], [place], [address], 02/26/2025 08:34:40 HbA1c (hemoglob in A1c), blood 2024 025 WINNIE In-Office Order, Internal Use Only DO Not Attach Compendium DO Not Attach Compendium, Do Not Delete/merge, [id number] 07/30/2024 12:35:35 Referral podiatris t referral [email or web address] [place] [address], [address], [place], [address], 08/30/2024 12:20:[address] referral 2023 024 [place], [address], [place], [address], 10/10/2023 15:42:24 Procedures None recorded. Surgeries None recorded. Imaging None recorded. Medication Orders Eliquis 5 mg tablet 2024 025 WINNIE [id number], [address], [place], [place], [id number], 02/25/2025 15:33:54 gabapenti n 400 mg capsule 2023 024 LEMOYNE [facility] #[id number], [address] [facility], [place], [place], [id number], 10/18/2023 14:40:36 Patient TargetsNo targets recorded. 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 Referring Physician: Tori Valladares, Pipe Fitter Supervisor, Encounter Date: 10/10/2023 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 Tying 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 Referral for 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 Referring Physician: Tori Valladares Pipe Fitter Supervisor, Encounter Date: 07/30/2024 Results Created Date Observation Date Name Description Value Unit Range Abnormal Flag Note LastModifiedBy Organization Detail LastModifiedTime 11/25/1911/28/2023 URINE CULTU RERASTA urine culture, routine FINAL REPORT abnormal Not Available [facility] ([facility]) [address], [place], [address], 11/28/2023 16:11:57 11/25/19 24 11/28/2023 URINE CULTU RERASTA NE result 1 COMMEN T abnormal Beta hemol ytic Strep tococ cus, group B 25,00 0-50, 000 colon y formi ng units per mL Penic illin and ampic illin are drugs of choic e for treat ment of beta- hemol ytic strep tococ tangela infec tions . Susce ptibi lity testi ng of penic illin s and other beta- lacta m agent s appro renard by the FDA for treat ment of beta- hemol ytic strep tococ tangela infec tions need not be perfo rmed routi fer becau se nonsu scept ible isola sofía are extre kostas rare in any beta- hemol ytic strep tococ cus and have not been repor mdahu for Strep tococ cus pyoge ashly (grou p A). (CLSI ) Not Available [facility] ([facility]) [address] [facility], [place], [address], 11/28/2023 16:11:57 11/25/19 24 11/25/2023 urina lysis , dipst ick Leukocytes Modera te Not Available In-Office Order Internal Use Only DO Not Attach Compendium DO Not Attach Compendium, Do Not Delete/merge, 11/25/2023 09:26:42 11/25/19 24 11/25/2023 urina lysis , dipst ick Nitrite negati ve Not Available In-Office Order Internal Use Only DO Not Attach Compendium DO Not Attach Compendium, Do Not Delete/merge, 11/25/2023 09:26:42 11/25/19 24 11/25/2023 urina lysis , dipst ick Urobilinogen 1 Not Available In-Of fice Order Internal Use Only DO Not Attach Compendium DO Not Attach Compendium, Do Not Delete/merge, 11/25/2023 09:26:42 11/25/19 24 11/25/2023 urina lysis , dipst ick Protein Trace Not Available In-Office Order Internal Use Only DO Not Attach Compendium DO Not Attach Compendium, Do Not Delete/merge, 11/25/2023 09:26:42 11/25/19 24 11/25/2023 urina lysis , dipst ick pH 7.0 Not Available In-Office Order Internal Use Only DO Not Attach Compendium DO Not Attach Compendium, Do Not Delete/merge, 11/25/2023 09:26:42 11/25/19 24 11/25/2023 urina lysis , dipst ick Blood Non-He molyze d: Trace Not Available In-Office Order Internal Use Only DO Not Attach Compendium DO Not Attach Compendium, Do Not Delete/merge, 11/25/2023 09:26:42 11/25/19 24 11/25/2023 urina lysis , dipst ick Specific Bell 1.015 Not Available In-Off ice Order Internal Use Only DO Not Attach Compendium DO Not Attach Compendium, Do Not Delete/merge, 11/25/2023 09:26:42 11/25/19 24 11/25/2023 urina lysis , dipst ick Ketone Negati ve Not Available In-Office Order Internal Use Only DO Not Attach Compendium DO Not Attach Compendium, Do Not Delete/merge, 11/25/2023 09:26:42 11/25/19 24 11/25/2023 urina lysis , dipst ick Bilirubin Small Not Available In-Offic e Order Internal Use Only DO Not Attach Compendium DO Not Attach Compendium, Do Not Delete/merge, 11/25/2023 09:26:42 11/25/19 24 11/25/2023 urina lysis , dipst ick Glucose Negati ve Not Available In-Office Order Internal Use Only DO Not Attach Compendium DO Not Attach Compendium, Do Not Delete/merge, 11/25/2023 09:26:42 11/25/19 24 11/25/2023 urina lysis , dipst ick Appearance Slight ly Cloudy Not Available In-Office Order Internal Use Only DO Not Attach Compendium DO Not Attach Compendium, Do Not Delete/merge, 11/25/2023 09:26:42 11/25/19 24 11/25/2023 urina lysis , dipst ick Color [place] Not Available In-Office Order Internal Use Only DO Not Attach Compendium DO Not Attach Compendium, Do Not Delete/merge, 11/25/2023 09:26:42 03/28/20 24 03/30/2024 URINE CULTU RE, ROUTI NE urine culture, routine FINAL REPORT Not Available [facility] ([facility]) [address] [facility], [place], [address], 03/30/2024 03:35:39 03/28/20 24 03/30/2024 URINE CULTU RE, ROUTI NE result 1 COMMEN T Cultu re shows less than 10,00 0 colon y formi ng units of bacte tawnya per nela liter of urine . This colon y count is not gener ally consi dered to be clini rodney signi fican t. Not Available [facility] ([facility]) [address] [facility], [place], [address], 03/30/2024 03:35:39 07/31/19 25 07/30/2024 HbA1c (hemo globi n A1c), blood HbA1c 5.8% Not Available In-Office Order Internal Use Only DO Not Attach Compendium DO Not Attach Compendium, Do Not Delete/merge, [id number] 07/30/2024 12:20:47 10/03/19 25 10/02/2024 Iron and Iron debora ng capac ity panel - Serum or Plasm a iron [mass/volume ] in serum or plasma 49 ug/dL low: 50ug/d Lhigh: 212ug/ dL low Not Available Not Available 11/09/2024 10:09:00 10/03/19 25 10/02/2024 Iron and Iron debora ng capac ity panel - Serum or Plasm a iron binding capacity.uns aturated [mass/volume ] in serum or plasma 165 ug/dL low: 155ug/ dLhigh : 355ug/ dL Not Available Not Available 11/09/2024 10:09:00 10/03/19 25 10/02/2024 Iron and Iron debora ng capac ity panel - Serum or Plasm a iron binding capacity [mass/volume ] in serum or plasma 214 ug/dL low: 261ug/ dLhigh : 478ug/ dL low Not Available Not Available 11/09/2024 10:09:00 10/03/19 25 10/02/2024 Iron and Iron debora ng capac ity panel - Serum or Plasm a iron saturation [mass fraction] in serum or plasma 23 % low: 20%hig h: 50% Not Available Not Available 11/09/2024 10:09:00 10/03/19 25 10/02/2024 Iron and Iron debora ng capac ity panel - Serum or Plasm a Unknown Analyte Releas e to patien t->Imm ediate Not Available Not Available 10:09:00 10/03/19 25 10/02/2024 Iron and Iron debora ng capac ity panel - Serum or Plasm a interpretati on and review of laboratory results Abnorm al Not Available Not Available 10:09:00 10/03/19 25 10/02/2024 CBC W Auto Diffe renti al panel - Blood leukocytes [#/volume] in blood by automated count 10.5 10*3/ uL low: 410*3/ uLhigh : 1010*3 /uL high Not Available Not Available 11/09/2024 10:09:00 10/03/19 25 10/02/2024 CBC W Auto Diffe renti al panel - Blood hemoglobin [mass/volume ] in blood 11.9 g/dL low: 13.7g/ dLhigh : 17.5g/ dL low Not Available Not Available 11/09/2024 10:09:00 10/03/19 25 10/02/2024 CBC W Auto Diffe renti al panel - Blood hematocrit [volume fraction] of blood by automated count 37.2 % low: 40.1%h igh: 51% low Not Available Not Available 11/09/2024 10:09:00 10/03/19 25 10/02/2024 CBC W Auto Diffe renti al panel - Blood platelets [#/volume] in blood by automated count 514 10*3/ uL low: 04004* 3/uLhi gh: 81083* 3/uL high Not Available Not Available 11/09/2024 10:09:00 10/03/19 25 10/02/2024 CBC W Auto Diffe renti al panel - Blood platelet [entitic mean volume] in blood by automated count 8.5 fL low: 9.4fLh igh: 12.4fL low Not Available Not Available 11/09/2024 10:09:00 10/03/19 25 10/02/2024 CBC W Auto Diffe renti al panel - Blood erythrocytes [#/volume] in blood by automated count 3.92 10*6/ uL low: 4.6310 *6/uLh igh: 6.0810 *6/uL low Not Available Not Available 11/09/2024 10:09:00 10/03/19 25 10/02/2024 CBC W Auto Diffe renti al panel - Blood MCV [entitic mean volume] in red blood cells by automated count 95 fL low: 79fLhi gh: 95fL Not Available Not Available 11/09/2024 10:09:00 10/03/19 25 10/02/2024 CBC W Auto Diffe renti al panel - Blood MCH [entitic mass] by automated count 30.4 pg low: 25.6pg high: 32.2pg Not Available Not Available 11/09/2024 10:09:00 10/03/19 25 10/02/2024 CBC W Auto Diffe renti al panel - Blood MCHC [entitic mass/volume] in red blood cells by automated count 32 g/dL low: 32.2g/ dLhigh : 36.5g/ dL low Not Available Not Available 11/09/2024 10:09:00 10/03/19 25 10/02/2024 CBC W Auto Diffe renti al panel - Blood erythrocyte [distwidth] in red blood cells by automated count 16.6 % low: 11.6%h igh: 14.4% high Not Available Not Available 11/09/2024 10:09:00 10/03/19 25 10/02/2024 CBC W Auto Diffe renti al panel - Blood neutrophils/ leukocytes in blood by automated count 64.7 % low: 36%hig h: 66% Not Available Not Available 11/09/2024 10:09:00 10/03/19 25 10/02/2024 CBC W Auto Diffe renti al panel - Blood lymphocytes/ leukocytes in blood by automated count 23.4 % low: 19%hig h: 40% Not Available Not Available 11/09/2024 10:09:00 10/03/19 25 10/02/2024 CBC W Auto Diffe renti al panel - Blood monocytes/le ukocytes in blood by automated count 8.2 % low: 4.1%hi gh: 12.1% Not Available Not Available 11/09/2024 10:09:00 10/03/1910/02/2024 CBC W Auto Diffe renti al panel - Blood eosinophils/ leukocytes in blood by automated count 3 % low: 0%high : 3.5% Not Available Not Available 11/09/2024 10:09:00 10/03/19 25 10/02/2024 CBC W Auto Diffe renti al panel - Blood basophils/le ukocytes in blood by automated count 0.5 % low: 0%high : 1% Not Available Not Available 11/09/2024 10:09:00 10/03/1910/02/2024 CBC W Auto Diffe renti al panel - Blood neutrophils [#/volume] in blood by automated count 6.8 10*3/ uL low: 1.410* 3/uLhi gh: 6.610* 3/uL high Not Available Not Available 11/09/2024 10:09:00 10/03/19 25 10/02/2024 CBC W Auto Diffe renti al panel - Blood lymphocytes [#/volume] in blood by automated count 2.5 10*3/ uL low: 0.810* 3/uLhi gh: 410*3/ uL Not Available Not Available 11/09/2024 10:09:00 10/03/19 25 10/02/2024 CBC W Auto Diffe renti al panel - Blood monocytes [#/volume] in blood by automated count 0.9 10*3/ uL low: 0.210* 3/uLhi gh: 1.210* 3/uL Not Available Not Available 11/09/2024 10:09:00 10/03/1910/02/2024 CBC W Auto Diffe renti al panel - Blood eosinophils [#/volume] in blood by automated count 0.3 10*3/ uL low: 010*3/ uLhigh : 0.410* 3/uL Not Available Not Available 11/09/2024 10:09:00 10/03/19 25 10/02/2024 CBC W Auto Diffe renti al panel - Blood basophils [#/volume] in blood by automated count 0.1 10*3/ uL low: 010*3/ uLhigh : 0.110* 3/uL Not Available Not Available 11/09/2024 10:09:00 10/03/1910/02/2024 CBC W Auto Diffe renti al panel - Blood interpretati on and review of laboratory results Abnorm al Not Available Not Available 10:09:00 10/03/1910/03/2024 Cobal hsu (Cassie min B12) [Mass /volu me] in Serum or Plasm a cobalamin (vitamin B12) [mass/volume ] in serum or plasma 774 pg/mL low: 180pg/ mLhigh : 914pg/ mL Not Available Not Available 11/09/2024 10:09:00 10/03/1910/03/2024 Cobal hsu (Cassie min B12) [Mass /volu me] in Serum or Plasm a Unknown Analyte Releas e to patien t->Imm ediate Not Available Not Available 10:09:00 10/03/1910/02/2024 Retic ulocy sofía/E rythr ocyte s in Blood by Autom ated count reticulocyte s/erythrocyt es in blood by automated count 1.09 % low: 0.51%h igh: 1.81% Not Available Not Available 11/09/2024 10:09:00 10/03/1910/02/2024 Retic ulocy sofía/E rythr ocyte s in Blood by Autom ated count hemoglobin [entitic mass] in reticulocyte s by automated count 31.9 pg low: 28.2pg high: 36.6pg RET-H e is a direc t asses sment of incor porat ion of iron into eryth rocyt e hemog lobin . It provi bin an indir ect measu re of the iron avail able for new eryth ropoi esis over past 2-4 days. Not Available Not Available 11/09/2024 10:09:00 10/03/1910/02/2024 Retic ulocy sofía/E rythr ocyte s in Blood by Autom ated count Unknown Analyte Releas e to patien t->Imm ediate Not Available Not Available 10:09:00 10/03/1910/03/2024 Folat e [Mass /volu me] in Serum or Plasm a folate [mass/volume ] in serum or plasma low: 5.9NG/ mL Not Available Not Available 11/09/2024 10:09:00 10/03/19 25 10/03/2024 Folat e [Mass /volu me] in Serum or Plasm a Unknown Analyte Releas e to patien t->Imm ediate IS THE PATIEN T REQUIR ED TO BE FASTIN G FOR 12 HOURS? ->No Not Available Not Available 10:09:00 10/03/1910/03/2024 Kitty tin [Mass /volu me] in Serum or Plasm a ferritin [mass/volume ] in serum or plasma 129 NG/mL low: 24NG/m Lhigh: 336NG/ mL Not Available Not Available 11/09/2024 10:09:00 10/03/1910/03/2024 Kitty tin [Mass /volu me] in Serum or Plasm a Unknown Analyte Releas e to patien t->Imm ediate Not Available Not Available 10:09:00 10/03/1910/02/2024 Compr [employer] 1999 panel - Serum or Plasm a glucose [mass/volume ] in serum or plasma 106 mg/dL low: 70mg/d Lhigh: 105mg/ dL high Not Available Not Available 11/09/2024 10:09:00 10/03/1910/02/2024 Compr [facility] 2000 panel - Serum or Plasm a urea nitrogen [mass/volume ] in serum or plasma 9 mg/dL low: 7mg/dL high: 25mg/d L Not Available Not Available 11/09/2024 10:09:00 10/03/1910/02/2024 Compr [facility] 2000 panel - Serum or Plasm a creatinine [mass/volume ] in serum or plasma 0.6 mg/dL low: 0.7mg/ dLhigh : 1.3mg/ dL low Not Available Not Available 11/09/2024 10:09:00 10/03/19 25 10/02/2024 Compr [facility] 2000 panel - Serum or Plasm a sodium [moles/volum e] in serum or plasma 139 text: 136 - 145 mEq/L Not Available Not Available 11/09/2024 10:09:00 10/03/19 25 10/02/2024 [email or web address] 1999 panel - Serum or Plasm a potassium [moles/volum e] in serum or plasma 3.9 text: 3.5 - 5.1 mEq/L Not Available Not Available 11/09/2024 10:09:00 10/03/19 25 10/02/2024 [facility] 1999 panel - Serum or Plasm a chloride [moles/volum e] in serum or plasma 103 text: 98 - 107 mEq/L Not Available Not Available 11/09/2024 10:09:00 10/03/19 25 10/02/2024 [facility] 1999 panel - Serum or Plasm a bicarbonate [moles/volum e] in serum or plasma 30 text: 21 - 31 mEq/L Not Available Not Available 11/09/2024 10:09:00 10/03/19 25 10/02/2024 [facility] 1999 panel - Serum or Plasm a bilirubin.to tito [mass/volume ] in serum or plasma 0.2 mg/dL low: 0.3mg/ dLhigh : 1mg/dL low Not Available Not Available 11/09/2024 10:09:00 10/03/19 25 10/02/2024 [email or web address] 1999 panel - Serum or Plasm a alkaline phosphatase [enzymatic activity/vol ume] in serum or plasma 122 U/L low: 34U/Lh igh: 104U/L high Not Available Not Available 11/09/2024 10:09:00 10/03/19 25 10/02/2024 [facility] [place] [address] panel - Serum or Plasm a aspartate aminotransfe rase [enzymatic activity/vol ume] in serum or plasma 10 U/L low: 13U/Lh igh: 39U/L low Not Available Not Available 11/09/2024 10:09:00 10/03/19 25 10/02/2024 [facility] [place] [address] panel - Serum or Plasm a alanine aminotransfe rase [enzymatic activity/vol ume] in serum or plasma 10 U/L low: 7U/Lhi gh: 52U/L Not Available Not Available 11/09/2024 10:09:00 10/03/19 25 10/02/2024 [facility] 1999 panel - Serum or Plasm a protein [mass/volume ] in serum or plasma 7.5 g/dL low: 6.4g/d Lhigh: 8.9g/d L Not Available Not Available 11/09/2024 10:09:00 10/03/19 25 10/02/2024 [facility] 1999 panel - Serum or Plasm a albumin [mass/volume ] in serum or plasma by bromocresol green (bcg) dye binding method 3.6 g/dL low: 3.5g/d Lhigh: 5.7g/d L Not Available Not Available 11/09/2024 10:09:00 10/03/1910/02/2024 [facility] 1999 panel - Serum or Plasm a calcium [mass/volume ] in serum or plasma 8.8 mg/dL low: 8.6mg/ dLhigh : 10.3mg /dL Not Available Not Available 11/09/2024 10:09:00 10/03/19 25 10/02/2024 [facility] 1999 panel - Serum or Plasm a anion gap in serum or plasma by calculated.4 ions 9.9 text: 7.0 - 15.0 mEq/L Not Available Not Available 11/09/2024 10:09:00 10/03/19 25 10/02/2024 [facility] 1999 panel - Serum or Plasm a globulin [mass/volume ] in serum by calculation 3.9 g/dL low: 2g/dLh igh: 3.5g/d L high Not Available Not Available 11/09/2024 10:09:00 10/03/19 25 10/02/2024 [place] [id number] panel - Serum or Plasm a eGFR 125 text: >60 mL/min /1.73m 2 This eGFR is calcu lated using 2020 CKD-E PI Creat inine equat ion witho ut race modif ier based on the NKF-A SN task force recom menda tions Equat ion: eGFR= 142*m in(SC r/k,1 )a*ma x(SCr /k,1) -1.20 0*0.9 938Ag e*1.0 12 (if femal e), where SCr is serum creat inine , k is 0.7 for femal es and 0.9 for males , and a is -0.24 1 for femal es and -0.30 2 for males Not Available Not Available 11/09/2024 10:09:00 10/03/19 25 10/02/2024 Compr [facility] 2000 panel - Serum or Plasm a Unknown Analyte Releas e to patien t->Imm ediate IS THE PATIEN T REQUIR ED TO BE FASTIN G FOR 8 HOURS? ->No Not Available Not Available 10:09:00 10/03/1910/02/2024 Compr [facility]hens [facility] 2000 panel - Serum or Plasm a interpretati on and review of laboratory results Abnorm al Not Available Not Available 10:09:00 01/02/2001/01/2025 iron + total iron- debora ng capac ity (TIBC ), serum iron, serum 41 ug/dL low: 50ug/d Lhigh: 212ug/ dL low Not Available Not Available 01/11/2025 15:47:19 01/02/20 25 01/01/2025 iron + total iron- debora ng capac ity (TIBC ), serum iron-binding capacity, unsaturated, serum 210 ug/dL low: 155ug/ dLhigh : 355ug/ dL Not Available Not Available 01/11/2025 15:47:19 01/02/20 25 01/01/2025 iron + total iron- debora ng capac ity (TIBC ), serum TIBC (total iron-binding capacity), serum 251 ug/dL low: 261ug/ dLhigh : 478ug/ dL low Not Available Not Available 01/11/2025 15:47:19 01/02/20 25 01/01/2025 iron + total iron- debora ng capac ity (TIBC ), serum iron saturation, serum 16 % low: 20%hig h: 50% low Not Available Not Available 01/11/2025 15:47:19 01/02/20 25 01/01/2025 iron + total iron- debora ng capac ity (TIBC ), serum no coding or coding display name was found Releas e to maddi t->Imm ediate Not Available Not Available 15:47:01/02/2001/01/2025 iron + total iron- debora ng capac ity (TIBC ), serum lab interpretati on Abnorm al Not Available Not Available 15:47:01/02/2001/01/2025 CBC w/ auto diff WBC, auto, blood 10.6 10*3/ uL low: 410*3/ uLhigh : 1010*3 /uL high Not Available Not Available 01/11/2025 15:47:01/02/2001/01/2025 CBC w/ auto diff hemoglobin (Hb), blood 13.7 g/dL low: 13.7g/ dLhigh : 17.5g/ dL Not Available Not Available 01/11/2025 15:47:01/02/2001/01/2025 CBC w/ auto diff hematocrit, automated count, blood 42.7 % low: 40.1%h igh: 51% Not Available Not Available 01/11/2025 15:47:01/02/2001/01/2025 CBC w/ auto diff platelets, auto, blood 413 10*3/ uL low: 00478* 3/uLhi gh: 60023* 3/uL high Not Available Not Available 01/11/2025 15:47:01/02/2001/01/2025 CBC w/ auto diff platelet mean volume, qn, automated, blood (obs) 8.7 fL low: 9.4fLh igh: 12.4fL low Not Available Not Available 01/11/2025 15:47:01/02/2001/01/2025 CBC w/ auto diff RBC count, blood 4.6 10*6/ uL low: 4.6310 *6/uLh igh: 6.0810 *6/uL low Not Available Not Available 01/11/2025 15:47:01/02/2001/01/2025 CBC w/ auto diff MCV, blood 93 fL low: 79fLhi gh: 95fL Not Available Not Available 01/11/2025 15:47:01/02/2001/01/2025 CBC w/ auto diff MCH, qn, automated (obs) 29.8 pg low: 25.6pg high: 32.2pg Not Available Not Available 01/11/2025 15:47:01/02/2001/01/2025 CBC w/ auto diff MCHC, qn, automated (obs) 32.1 g/dL low: 32.2g/ dLhigh : 36.5g/ dL low Not Available Not Available 01/11/2025 15:47:01/02/2001/01/2025 CBC w/ auto diff erythrocyte distribution width, ratio, automated (obs) 17.2 % low: 11.6%h igh: 14.4% high Not Available Not Available 01/11/2025 15:47:01/02/2001/01/2025 CBC w/ auto diff neutrophils/ 100 leukocytes, automated, blood (obs) 64.6 % low: 36%hig h: 66% Not Available Not Available 01/11/2025 15:47:01/02/2001/01/2025 CBC w/ auto diff lymphocytes/ 100 leukocytes, automated, blood (obs) 22.9 % low: 19%hig h: 40% Not Available Not Available 01/11/2025 15:47:01/02/2001/01/2025 CBC w/ auto diff monocytes/10 0 leukocytes, automated, blood (obs) 9.2 % low: 4.1%hi gh: 12.1% Not Available Not Available 01/11/2025 15:47:01/02/2001/01/2025 CBC w/ auto diff eosinophils/ 100 leukocytes, automated, blood (obs) 2.8 % low: 0%high : 3.5% Not Available Not Available 01/11/2025 15:47:01/02/20 25 01/01/2025 CBC w/ auto diff basophils/10 0 leukocytes, automated, blood (obs) 0.3 % low: 0%high : 1% Not Available Not Available 01/11/2025 15:47:01/02/2001/01/2025 CBC w/ auto diff neutrophil count, absolute (anc), blood (obs) 6.9 10*3/ uL low: 1.410* 3/uLhi gh: 6.610* 3/uL high Not Available Not Available 01/11/2025 15:47:01/02/2001/01/2025 CBC w/ auto diff lymphocytes, quantitative , blood, automated count (obs) 2.4 10*3/ uL low: 0.810* 3/uLhi gh: 410*3/ uL Not Available Not Available 01/11/2025 15:47:01/02/2001/01/2025 CBC w/ auto diff monocytes, count, automated, blood (obs) 1 10*3/ uL low: 0.210* 3/uLhi gh: 1.210* 3/uL Not Available Not Available 01/11/2025 15:47:01/02/2001/01/2025 CBC w/ auto diff eosinophils, auto, blood, absolute 0.3 10*3/ uL low: 010*3/ uLhigh : 0.410* 3/uL Not Available Not Available 01/11/2025 15:47:01/02/2001/01/2025 CBC w/ auto diff basophils, quant, auto, blood (obs) 0 10*3/ uL low: 010*3/ uLhigh : 0.110* 3/uL Not Available Not Available 01/11/2025 15:47:01/02/2001/01/2025 CBC w/ auto diff lab interpretati on Abnorm al Not Available Not Available 15:47:01/02/2001/04/2025 vitam in B12, serum vitamin B12, serum 489 pg/mL low: 180pg/ mLhigh : 914pg/ mL Not Available Not Available 01/11/2025 15:47:01/02/2001/04/2025 vitam in B12, serum no coding or coding display name was found Releas e to patien t->Imm ediate Not Available Not Available 15:47:01/02/2001/01/2025 retic ulocy te count , auto, blood reticulocyte count, auto, blood 1.58 % low: 0.51%h igh: 1.81% Not Available Not Available 01/11/2025 15:47:01/02/2001/01/2025 retic ulocy te count , auto, blood hemoglobin, qn, automated, reticulocyte s (obs) 33.3 pg low: 28.2pg high: 36.6pg RET-H e is a direc t asses sment of incor porat ion of iron into eryth rocyt e hemog lobin . It provi bin an indir ect measu re of the iron avail able for new eryth ropoi esis over past 2-4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
== END 2025-04-07 13:00 | disposition home or self-care (01) ==
DX: K43.9 Ventral hernia without obstruction or gangrene (principal); R15.9 Full incontinence of feces
CPT/HCPCS: 74176